=== PATIENT | male | born 1950 | race Caucasian/White ===

== ENCOUNTER 2025-01-22 13:11 | Inpatient (IN) | payer OTHER ==
[~2025-01-22] VITALS: Ht 180.3 cm; Wt 72.6 kg
[~2025-01-22 13:11] MED LIST: ATOR40TA PO; Amlodipine Besyl5 MG PO; CYCL10 PO; LISI20 PO; SILD50TA
[2025-01-22 13:45] LABS: BASOPHILS ABSOLUTE AUTO 0.10 K/mm3 (0.00-0.23); BASOPHILS PERCENT AUTO 1 % (0-2); EOSINOPHILS ABSOLUTE AUTO 0.62 K/mm3 (0.00-0.68); EOSINOPHILS PERCENT AUTO 8 % (0-6); Hematocrit 42.0 % (37.0-53.0); Hemoglobin 13.7 g/dL (13.5-17.5); IMMATURE GRAN ABSOLUTE AUTO 0.02 K/mm3 (0.00-0.10); IMMATURE GRAN PERCENT AUTO 0 % (0-1); LYMPHOCYTES ABSOLUTE AUTO 1.66 K/mm3 (0.84-5.20); LYMPHOCYTES PERCENT AUTO 20 % (21-46); MONOCYTES ABSOLUTE AUTO 1.00 K/mm3 (0.16-1.47); MONOCYTES PERCENT AUTO 12 % (4-13); Mean Corpuscular HGB Conc 32.6 g/dL (31.5-36.5); Mean Corpuscular Volume 93 fL (80-100); NEUTROPHILS ABSOLUTE AUTO 4.76 K/mm3 (1.96-9.15); NEUTROPHILS PERCENT AUTO 58 % (41-73); NRBC ABSOLUTE 0.00 K/mm3 (0.00-0.02); NRBC Auto 0.0 /100 WBC (0.0-0.2); Platelet Count 278 K/mm3 (150-400); RDW Coefficient Variation 14.5 % (11.7-14.2); RDW Standard Deviation 49.7 fL (35.1-46.3)
[2025-01-22 14:21] LABS: Alanine Aminotransfer (ALT/SGP 33.0 U/L (12-78); Albumin, Blood 4.2 g/dL (3.4-5.0); Albumin/Globulin Ratio 1.1 (0.8-1.8); Anion Gap 4.0 mmol/L (3-11); Aspartate Aminotrans (AST/SGOT 33.0 U/L (12-37); Bilirubin, Total 0.4 mg/dL (0.1-1.0); Blood Urea Nitrogen 19.0 mg/dL (8-24); CO2, Blood 31.0 mmol/L (21-32); Calcium, Blood 9.1 mg/dL (8.5-10.1); Chloride, Blood 106.0 mmol/L (98-108); Creatinine, Blood 0.89 mg/dL (0.60-1.20); Globulin, Blood 3.9 g/dL (2.2-4.0); Glucose, Blood 116.0 mg/dL (70-99); Potassium, Blood 4.3 mmol/L (3.5-5.5); Sodium, Blood 137.0 mmol/L (136-145); Total Protein, Blood 8.1 g/dL (6.4-8.2)
[2025-01-22] MEDS ORDERED: Albuterol 2.5 MG/3 ML VIAL INH SCH (14:50)
[2025-01-22 16:06] LABS: Influenza A, PCR NEGATIVE (NEGATIVE); Influenza B, PCR NEGATIVE (NEGATIVE); Resp Syncytial Virus, PCR NEGATIVE (NEGATIVE); SARS-Cov-2 (COVID-19) PCR, MMC NEGATIVE (NEGATIVE)
[2025-01-22] MEDS ORDERED: Ipratropium/Albuterol SulF 2.5-0.5MG/3 ML Amp INH SCH (16:45)
[2025-01-22] MEDS ORDERED: Albuterol 2.5 MG/3 ML VIAL INH PRN (16:50)
[2025-01-22] MEDS ORDERED: Ondansetron HCl 2 MG / ML 2ML Vial IV PRN (16:50)
[2025-01-22] MEDS ORDERED: NS 1,000 ML IV ONE (17:00)
[2025-01-22 18:33] VITALS: BP 144/92
[2025-01-22] MEDS ORDERED: CELEXA40 M1 PO (19:42)
[2025-01-22 20:02] VITALS: BP 134/85
[2025-01-23 02:04] VITALS: BP 117/77
[2025-01-23 03:09] VITALS: BP 115/85
[2025-01-23 07:15] VITALS: BP 117/79
[2025-01-23] MEDS ORDERED: Enoxaparin 40 MG/0.4 ML SYR SC SCH (09:00)
[2025-01-23] MEDS ORDERED: ALBU2.5V5 INH (12:31)
[2025-01-23] MEDS ORDERED: ALBU90OI INH (12:31)
[2025-01-23] MEDS ORDERED: STIOLTO RESPIMAT4 G1 INH (12:32)
[2025-01-23 15:55] VITALS: BP 128/83
[2025-01-23 19:12] VITALS: BP 121/72
[2025-01-24 04:59] VITALS: BP 111/73
[2025-01-24 07:09] VITALS: BP 118/71
[2025-01-24] MEDS ORDERED: Prednisone10 MG PO (15:27)
[2025-01-24] MEDS ORDERED: DOXY100 PO (15:27)
== END 2025-01-24 16:17 | disposition home or self-care (01) | DRG 189 ==
LOC: ER 13:11 → ERHOLD 16:44 → MEDS 16:44
PROVIDERS: Emergency Medicine; Student in an Organized Health Care Education/Training Program; ADMIT Family Medicine
DX: J96.01 Acute respiratory failure with hypoxia (principal); J44.1 Chronic obstructive pulmonary disease with (acute) exacerbation; I45.10 Unspecified right bundle-branch block; J43.9 Emphysema, unspecified; I10 Essential (primary) hypertension; E78.5 Hyperlipidemia, unspecified; Z79.899 Other long term (current) drug therapy; Z87.891 Personal history of nicotine dependence; Z91.030 Bee allergy status; Z91.038 Other insect allergy status; Z85.118 Personal history of other malignant neoplasm of bronchus and lung
CPT/HCPCS: 0241U; 71046; 80053; 83880; 84484; 85025; 93005; 93010; 94640; 94664; 94761; 94762; 96372; 96374; 96375; 96376; 99285-25; A9270; G0378; J0456; J1650; J2919; J7030; J7050